=== PATIENT | female | born 1975 | race Caucasian/White ===

== ENCOUNTER 2017-07-21 13:35 | Emergency (ER) | payer OTHER ==
[~2017-07-21] VITALS: Ht 165.1 cm; Wt 70.3 kg
[2017-07-21 14:30] VITALS: BP 132/70
== END 2017-07-21 14:20 | disposition home or self-care (01) ==
LOC: FSED 13:35
DX: M54.2 Cervicalgia (principal); M54.5 Low back pain; S16.1XXA Strain of muscle, fascia and tendon at neck level, initial encounter; V43.53XA Car driver injured in collision with pick-up truck in traffic accident, initial encounter; Y92.488 Other paved roadways as the place of occurrence of the external cause
CPT/HCPCS: 99282

== ENCOUNTER 2018-06-24 12:11 | Emergency (ER) | payer OTHER ==
[~2018-06-24] VITALS: Ht 165.1 cm; Wt 73.5 kg
[2018-06-24] MEDS ORDERED: CEFTRIAXONE SOD 1 GM VIAL IM ONE (12:30)
--- NOTE | 2018-06-24 12:50 | NUR ---
urine in tube labeled and placed in fridge for cx.
== END 2018-06-24 13:07 | disposition home or self-care (01) ==
LOC: FSED 12:11
DX: R30.0 Dysuria (principal); N30.91 Cystitis, unspecified with hematuria
CPT/HCPCS: 81003; 87086; 87186; 99283; J0696

== ENCOUNTER → 2018-06-26 | Outpatient (CLI) | payer OTHER | LOC: MAMMO 08:17 | PROVIDERS: ATTEND Obstetrics & Gynecology | DX: Z12.31 Encounter for screening mammogram for malignant neoplasm of breast (principal) | CPT/HCPCS: 77067 ==

== ENCOUNTER 2018-07-13 15:03 | Emergency (ER) | payer OTHER ==
[~2018-07-13] VITALS: Ht 162.6 cm; Wt 75.7 kg
[2018-07-13] MEDS ORDERED: CEFTRIAXONE SOD 1 GM VIAL IM ONE (15:30)
== END 2018-07-13 16:08 | disposition home or self-care (01) ==
LOC: FSED 15:03
DX: R10.2 Pelvic and perineal pain (principal); N30.00 Acute cystitis without hematuria
CPT/HCPCS: 81003; 87086; 87186; 99282; J0696

== ENCOUNTER 2018-08-09 09:39 | Observation (INO) | payer OTHER ==
[2018-08-08 16:06] LABS: BASOPHILS # (AUTO) 0.1 (0.0-0.1); BASOPHILS % 0.5 % (0.0-1.0); HEMATOCRIT 43.8 % (34.2-44.1); HEMOGLOBIN 14.9 g/dL (12.0-16.0); LYMPHOCYTES # (AUTO) 3.1 (1.0-3.2); LYMPHOCYTES % 28.1 % (18.0-39.1); MEAN CORPUSCULAR HEMOGLOBIN 31.7 pg (28-32); MEAN CORPUSCULAR VOLUME 93.2 fL (81-99); MONOCYTES # (AUTO) 0.6 (0.2-0.8); MONOCYTES % 5.1 % (4.4-11.3); NEUTROPHILS # (AUTO) 7.1 (2.1-6.9); NEUTROPHILS % 65.8 % (38.7-80.0); PLATELET COUNT 286 x10e3/uL (140-360); RED CELL DISTRIBUTION WIDTH 11.9 % (11.7-14.4)
[~2018-08-09] VITALS: Ht 162.6 cm; Wt 75.7 kg
[~2018-08-09 09:39] MED LIST: CYCLOBENZAPRINE5 MG PO; HYDROXYZINE HCL25 MG PO; SUMATRIPTAN SUC25 MG PO; TIZANIDINE HCL4 MG PO; TOPIRAMATE25 MG PO; ULTRAM50 MG PO
[2018-08-09] MEDS ORDERED: BUPIVACAINE 0.25%/EPI 30ML SDV INJ ONE (10:51)
[2018-08-09] MEDS ORDERED: FENTANYL CITRATE/PF 100MCG/2 ML INJ ONE ×2 (14:27→18:10)
[2018-08-09] MEDS ORDERED: MORPHINE SULFATE INJ 4 MG/ML INJ 1ML ONE ×2 (15:01→16:11)
--- OUTSIDE RECORDS SUMMARY | 2018-08-09 16:03 | XMS REPORT ---
Author Author [facility] Address Unknown Phone Unavailable Care Team Providers Care Food Writer Name Role Phone SUSAN HOYT Unavailable Unavailable Problems This patient has no known problems. Allergies, Adverse Reactions, Alerts This patient has no known allergies or adverse reactions. Medications This patient has no known medications. Results Test Description Test Time Test Comments Text Results Atomic Results Result Comments MAMMOGRAPHY DIGITAL SCR BILAT 2018-06-26 09:10:00 [place] [id number] Patient Name: MYRON LAU MR #: [id number] : 1975 Age/Sex: 42/F Req #: [id number] Adm Physician: Ordered by: SUSAN HOYT MD Report #: [id number] Location: MAMMO Room/Bed: Procedure: [id number] MG/MAMMOGRAPHY DIGITAL SCR BILAT Exam Date: 06/26/18 Exam Time: 0833 REPORT STATUS: Signed #[id number] - [id number] #BILATERAL DIGITAL SCREENING MAMMOGRAM WITH CAD: 06/26/2018 CLINICAL: Routine screening. Comparison is made to exams dated: 03/14/2017 mammogram, 02/23/2016 mammogram and 03/02/2015 mammogram - [facility]. Current study contains 4 films. The tissue of both breasts is heterogeneously dense. This may lower the sensitivity of mammography. Current study was also evaluated with a Computer Aided Detection (CAD) system. No significant masses, calcifications, or other findings are seen in either breast. There has been no significant interval change. IMPRESSION: NEGATIVE There is no mammographic evidence of malignancy. A 1 year screening mammogram is recommended. The patient will be notified by letter of the results. Hair nguyen/juan:07/13/2018 08:45:04 Software Manager: Indu BANKS(Staci)(M), [facility] letter sent: Compared to Prior B9 Mammogram BI-RADS: 1 Negative Dictated By: HAIR REYES DO 4 Transcribed By: JUAN on 07/13/18844 COPY TO: SUSAN HOYT MD
[2018-08-09] MEDS ORDERED: LIDOCAINE HCL 2% LOCAL INJ 5 ML SDV VIAL INJ ONE (17:43)
[2018-08-09] MEDS ORDERED: GLYCOPYRROLATE INJ 1MG/ 5 ML SYR ONE (17:43)
[2018-08-09] MEDS ORDERED: ROCURONIUM BROMIDE 10 MG/ML 5ML VIAL ONE (17:43)
[2018-08-09] MEDS ORDERED: PROPOFOL IV EMULSION 10 MG/ML 20 ML VIAL ONE (17:43)
[2018-08-09] MEDS ORDERED: NEOSTIGMINE 5 MG/5ML SYR ONE (17:43)
[2018-08-09] MEDS ORDERED: KETOROLAC TROMETHAMINE 30 MG/ML VIAL ONE (17:43)
[2018-08-09] MEDS ORDERED: DEXAMETHASONE SOD PHOS INJ 4 MG/ML VIAL ONE (17:43)
[2018-08-09] MEDS ORDERED: SEVOFLURANE INHAL SOLN 250 ML PEN BTL ONE (17:43)
[2018-08-09] MEDS ORDERED: ONDANSETRON HCL INJ 2MG/ML 2ML 2 MG/ML VIAL ONE (17:43)
[2018-08-09] MEDS ORDERED: MIDAZOLAM HCL 2 MG/2 ML VIAL ONE (18:10)
[2018-08-09] MEDS ORDERED: SODIUM CHLORIDE FLUSH 10 ML SYR INJ PRN (18:15)
--- NOTE | 2018-08-09 18:46 | NUR ---
RCD PT FROM [facility] BY WHEEL CHAIR PT IS ALERT AND ORIENTED VITALS CHECKED PT RESTING ON BED BED LOW AND LOCKED CALL LIGHT IN REACH
--- NOTE | 2018-08-09 19:15 | NUR ---
PT RESTING ON BED BED SIDE REPORT GIVEN TO ONCOMING NURSE
--- NOTE | 2018-08-09 19:30 | NUR ---
Received patient in bed watching tv in supine position with HOB slightly elevated. No s/s of resp distress. C/O tenderness with pain rating 5 to abd. Has 3 trochar sites secured with band-aids c,d,i. Will continue to monitor urine output. Call light within reach and instructed to call for assistance.
[2018-08-09 20:13] VITALS: BP 121/85
[2018-08-09 20:17] VITALS: BP 137/84
[2018-08-09 20:22] VITALS: BP 137/84
[2018-08-09] MEDS: KETOROLAC TROMETHAMINE 30 MG/ML VIAL IM PRN (20:45)
--- NOTE | 2018-08-09 22:30 | NUR ---
Patient stated she had minimal amount of urine output that is dark yellow urine. No blood.
[2018-08-10 00:13] VITALS: BP 131/66
--- NOTE | 2018-08-10 02:18 | Operative Report ---
DATE OF PROCEDURE: SURGEON: Heather Stanford MD PREOPERATIVE DIAGNOSIS: Pelvic pain. POSTOPERATIVE DIAGNOSIS: Pelvic pain. PROCEDURES: Laparoscopy, right ovarian cystectomy, and ablation of endometriosis. COMPLICATIONS: None. ESTIMATED BLOOD LOSS: 20 mL. PROCEDURE IN DETAIL: The patient was taken to OR. General anesthesia was induced. The patient was prepped and draped in a sterile fashion, placed in dorsal lithotomy position. forceps was placed inside the vagina. Two Allis clamps applied at the umbilicus . Intraoperative skin incision was made with a scalpel. A 5 mm bladeless trocar and cannula were passed through the abdominal wound into the abdominal cavity. Under direct visualization, trocar was removed and scope was abdominal cavity. Abdomen was insufflated with carbon dioxide gas. The patient was placed in Trendelenburg position. Good visualization of the pelvis showed absent uterus. Right ovarian cyst of about 4 cm, hemorrhagic in nature, but cannot rule out corpus luteum. Normal left ovary. Endometriosis in the pouch of Iain and on the posterior leaflet of the peritoneum on both sides of the pelvis. Multiple cavities in the pouch of Iain scarring due to endometriosis. Two other ports were made on the right side of the abdomen after making 5 mm incision with the scalpel, and 5 mm bladeless trocar and cannula were passed through the abdominal wall into the abdominal cavity under direct visualization. Trocars were removed under direct visualization one at a time and using the grasper, the right ovary was held and using LigaSure, the cyst was removed and sent to Pathology. The cyst was cauterized to avoid bleeding. Endometriosis was cauterized using the [place] Bipolar instruments. Suction irrigation of peritoneal cavity with warm saline. Following this, 5 mm scope was passed through the side port and 10 mm incision was extended in the umbilicus, and 10 mm bladeless trocar and cannula were passed through the umbilicus into the abdominal cavity under direct visualization and the abdomen was deflated. Trocar was removed and EndoCatch was inserted closed and removed under direct visualization. Following this, abdomen was deflated. Instruments were removed from the abdomen. Abdominal incision was approximated using Dermabond. Marcaine with epinephrine was injected subcutaneously. The patient tolerated the procedure well. Lap and needle count was correct x2 at the end of procedure. Heather Stanford MD DD/AYAAN /[id number]
[2018-08-10 04:00] VITALS: BP 105/66
[2018-08-10] MEDS: KETOROLAC TROMETHAMINE 30 MG/ML VIAL IM PRN (06:11)
[2018-08-10 08:00] VITALS: BP 114/67
[2018-08-10 08:39] VITALS: BP 114/67
[2018-08-10 11:21] VITALS: BP 125/79
--- NOTE | 2018-08-10 13:00 | NUR ---
Dr. Stanford here to see pt and gave orders to discharge pt home.
== END 2018-08-10 14:39 | disposition home or self-care (01) ==
LOC: OR 09:39 → MED/SURG2 18:30
PROVIDERS: ADMIT Obstetrics & Gynecology; ATTEND Obstetrics & Gynecology
DX: N83.11 Corpus luteum cyst of right ovary (principal); N80.9 Endometriosis, unspecified
CPT/HCPCS: 36415; 58353; 58662; 84702; 85025; 88305; 88311; G0378 ×2; J1100; J1885 ×2; J2001; J2250; J2270; J2405; J2704; J3490; 88304